=== PATIENT | female | born 1965 | race Caucasian/White ===

== ENCOUNTER 2019-07-20 19:33 | Emergency (ER) | payer SELFPAY ==
[~2019-07-20] VITALS: Ht 154.9 cm; Wt 77.6 kg
[2019-07-20] MEDS ORDERED: HYDROCODONE/APAP 7.5MG-325MG 1 EA TAB PO PRN ×2 (19:45→21:15)
--- NOTE | 2019-07-20 21:17 | Diagnostic Imaging Report ---
Right complete knee. CPT CODE: 11588. INDICATION: Knee entrapment, pain COMPARISON: None FINDINGS: No evidence of acute fracture or dislocation. Mild degenerative changes of the medial and patellofemoral compartments. Trace suprapatellar effusion. IMPRESSION: No acute traumatic pathology. Mild degenerative changes and trace joint effusion. Signed by: Dr. Urbano Cotto MD on 07/20/2019 9:13 PM
--- NOTE | 2019-07-20 21:19 | Diagnostic Imaging Report ---
Ankle complete CPT CODE: 24272 HISTORY: Ankle entrapment, pain TECHNIQUE: Three views left ankle obtained COMPARISON: None. FINDINGS: Miniscule ossicle inferior to the medial malleolus is suggestive of remote injury. Ankle mortise remains symmetric. No significant soft tissue swelling. Miniscule. The calcaneus appears intact with posterior plantar spurs. There are degenerative changes of the midfoot. No acute fracture of the visualized portions of the midfoot or forefoot. IMPRESSION: No acute traumatic pathology. Remote injury inferior to the medial malleolus. Please correlate with point tenderness. Signed by: Dr. Urbano Cotto MD on 07/20/2019 9:16 PM
[2019-07-20] MEDS ORDERED: HYDROCODONE/APAP 7.5MG-325MG 1 EA TAB ONE (21:39)
== END 2019-07-20 22:00 | disposition home or self-care (01) ==
LOC: FSED 19:33 → ER 22:00
DX: S93.492A Sprain of other ligament of left ankle, initial encounter (principal); M25.561 Pain in right knee; X50.1XXA Overexertion from prolonged static or awkward postures, initial encounter; Y99.0 Civilian activity done for income or pay

== ENCOUNTER 2020-03-21 20:17 | Observation (INO) | payer OTHER, SELFPAY ==
[~2020-03-21] VITALS: Ht 154.9 cm; Wt 81.6 kg
--- OUTSIDE RECORDS SUMMARY | 2020-03-21 20:22 | XMS REPORT ---
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 Allergies, Adverse Reactions, Alerts Allergy Name Allergy Type Status Severity Reaction(s) Onset Date Inacti ve Date Treating Clinician Comments No Known Allergies DA Active U 2019-08-18 00:00:00 No Known Allergies DA Active U 2010-11-10 00:00:00 Medications This patient has no known medications. Encounters Start Date/Time End Date/Time Encounter Type Admission Type [facility] Care Department Encounter ID 2019-07-20 19:33:00 2019-07-20 22:00:00 Departed Emergency Room 1 SALVADOR GUTIÉRREZ [facility] [id number] Results Test Description Test Time Test Comments Text Results Atomic Results Result Comments URINALYSIS COMPLETE 2019-08-18 09:24:00 UA COLOR (test code = COLU) YELLOW YELLOW UA APPEARANCE (test code = APPU) Cloudy CLEAR UA GLUCOSE DIPSTICK (test code = DGLUU) NEGATIVE mg/dL NEGATIVE UA BILIRUBIN DIPSTICK (test code = BILU) NEGATIVE mg/dL NEGATIV E UA KETONE DIPSTICK (test code = KETU) NEGATIVE mg/dL NEGATIVE UA SPECIFIC GRAVITY (test code = SGU) 1.034 1.001-1.03 5 UA BLOOD DIPSTICK (test code = EKATERINA) 1.0 mg/dL (3+) mg/dL NEGATIV E UA PH DIPSTICK (test code = AARON) 5.5 5.0-8.0 UA PROTEIN DIPSTICK (test code = PROU) 20 (Trace) mg/dL NEGATIVE UA UROBILINIOGEN DIPSTICK (test code = URO) Normal mg/dL NEGA TIVE UA NITRITE DIPSTICK (test code = MATTY) NEGATIVE NEGATIVE UA LEUKOCYTE ESTERASE W REFLEX (test code = LEUUR) 75 Jose/uL (1+) Jose/uL NEGATIVE UA WBC (test code = WBCU) 21-50 per HPF 0-5 UA RBC (test code = RBCU) >200 #/HPF 0-5 UA EPITHELIAL CELLS (test code = EPIU) MOD per HPF FEW UA BACTERIA (test code = BACU) MODERATE #/HPF NONE UA CALCIUM OXALATE CRYSTALS (test code = CAOXU) FEW #/HPF NONE UA MUCUS (test code = MUCU) FEW #/LPF FEW Urine Source? Clean CatchURINALYSIS [id number] 08:48:00* Test Item Value Reference Range Comments UA COLOR (test code = COLU) YELLOW YELLOW UA APPEARANCE (test code = APPU) Cloudy CLEAR UA GLUCOSE DIPSTICK (test code = DGLUU) NEGATIVE mg/dL NEGATIVE UA BILIRUBIN DIPSTICK (test code = BILU) NEGATIVE mg/dL NEGATIV E UA KETONE DIPSTICK (test code = KETU) NEGATIVE mg/dL NEGATIVE UA SPECIFIC GRAVITY (test code = SGU) 1.034 1.001-1.03 5 UA BLOOD DIPSTICK (test code = EKATERINA) 1.0 mg/dL (3+) mg/dL NEGATIV E UA PH DIPSTICK (test code = AARON) 5.5 5.0-8.0 UA PROTEIN DIPSTICK (test code = PROU) 20 (Trace) mg/dL NEGATIVE UA UROBILINIOGEN DIPSTICK (test code = URO) Normal mg/dL NEGA TIVE UA NITRITE DIPSTICK (test code = MATTY) NEGATIVE NEGATIVE UA LEUKOCYTE ESTERASE W REFLEX (test code = LEUUR) 75 Jose/uL (1+) Jose/uL NEGATIVE UA WBC (test code = WBCU) per HPF 0-5 UA RBC (test code = RBCU) per HPF 0-5 UA EPITHELIAL CELLS (test code = EPIU) per HPF Few UA BACTERIA (test code = BACU) per HPF NONE Urine Source? Clean CatchBASIC METABOLIC [id number] 07:47:00* Test Item Value Reference Range Comments SODIUM (test code = NA) 142 mmol/L 136-145 POTASSIUM (test code = K) 3.6 mmol/L 3.5-5.1 CHLORIDE (test code = CL) 106.0 mmol/L 98-107 CARBON DIOXIDE (test code = CO2) 29.0 mmol/L 21-32 ANION GAP (test code = GAP) 10.6 10-20 GLUCOSE (test code = GLU) 102 mg/dL 74-106 BLOOD UREA NITROGEN (test code = BUN) 15 mg/dL 7-18 GLOMERULAR FILTRATION RATE (test code = GFR) > 60 mL/min >=6 0 Estimated GFR by using Modified MDRD formula.Chronic kidney disease is defined as either kidney damageor GFR <60 mL/min/1.73 m2 for >3 months. CREATININE (test code = CREAT) 0.80 mg/dL 0.55-1.02 * *Note change in reference range due to change in reagent. BUN/CREATININE RATIO (test code = BUN/CREA) 19.6 10-2 0 CALCIUM (test code = CA) 8.6 mg/dL 8.5-10.1 HEPATIC FUNCTION [id number] 07:47:00* Test Item Value Reference Range Comments TOTAL PROTEIN (test code = PROT) 7.1 gram/dL 6.4-8.2 ALBUMIN (test code = ALB) 3.3 g/dL 3.4-5.0 GLOBULIN (test code = GLOB) 3.8 gram/dL 2.7-4.2 ALBUMIN/GLOBULIN RATIO (test code = A/G) 0.9 0.75-1. 50 BILIRUBIN TOTAL (test code = BILT) 0.20 mg/dL 0.0-1.0 BILIRUBIN DIRECT (test code = BILD) 0.06 mg/dL 0.0-0.20 SGOT/AST (test code = AST) 12 IUnit/L 15-37 SGPT/ALT (test code = ALT) 17 IUnit/L 12-78 ALKALINE PHOSPHATASE TOTAL (test code = ALKP) 71 IUnit/L 45 -117 Note change in reference range due to change in reagent. [id number] 07:47:00* Test Item Value Reference Range Comments LIPASE (test code = LIP) 86 U/L 73.0-393.0 HCG SERUM [id number] 07:47:00* Test Item Value Reference Range Comments HCG SERUM QUAL (test code = HCGQL) NEGATIVE NEGATIVE This HCGQL test is NOT applicable for MALE patients.Check with nurse about probable order error.If Tumor Marker Test needed, nurse should order test "HCGTU"(Test #550.40554) [id number] 07:47:00* Test Item Value Reference Range Comments TROPONIN-I (test code = TROPI) <0.015 ng/mL 0-0.045 BASIC METABOLIC [id number] 07:29:00* Test Item Value Reference Range Comments SODIUM (test code = NA) 142 mmol/L 136-145 POTASSIUM (test code = K) 3.6 mmol/L 3.5-5.1 CHLORIDE (test code = CL) 106.0 mmol/L 98-107 CARBON DIOXIDE (test code = CO2) mmol/L 21-32 ANION GAP (test code = GAP) 10-20 GLUCOSE (test code = GLU) mg/dL 74-106 BLOOD UREA NITROGEN (test code = BUN) mg/dL 7-18 GLOMERULAR FILTRATION RATE (test code = GFR) mL/min >=6 0 CREATININE (test code = CREAT) mg/dL 0.55-1.02 BUN/CREATININE RATIO (test code = BUN/CREA) 10-2 0 CALCIUM (test code = CA) mg/dL 8.5-10.1 HEPATIC FUNCTION [id number] 07:29:00* Test Item Value Reference Range Comments TOTAL PROTEIN (test code = PROT) gram/dL 6.4-8.2 ALBUMIN (test code = ALB) g/dL 3.4-5.0 GLOBULIN (test code = GLOB) gram/dL 2.7-4.2 ALBUMIN/GLOBULIN RATIO (test code = A/G) 0.75-1. 50 BILIRUBIN TOTAL (test code = BILT) mg/dL 0.0-1.0 BILIRUBIN DIRECT (test code = BILD) mg/dL 0.0-0.20 SGOT/AST (test code = AST) IUnit/L 15-37 SGPT/ALT (test code = ALT) IUnit/L 12-78 ALKALINE PHOSPHATASE TOTAL (test code = ALKP) IUnit/L 45 -117 [id number] 07:29:00* Test Item Value Reference Range Comments LIPASE (test code = LIP) U/L 73.0-393.0 HCG SERUM [id number] 07:29:00* Test Item Value Reference Range Comments HCG SERUM QUAL (test code = HCGQL) NEGATIVE NEGATIVE This HCGQL test is NOT applicable for MALE patients.Check with nurse about probable order error.If Tumor Marker Test needed, nurse should order test "HCGTU"(Test #550.97458) [id number] 07:29:00* Test Item Value Reference Range Comments TROPONIN-I (test code = TROPI) ng/mL 0-0.045 BASIC METABOLIC [id number] 07:27:00* Test Item Value Reference Range Comments SODIUM (test code = NA) mmol/L 136-145 POTASSIUM (test code = K) mmol/L 3.5-5.1 CHLORIDE (test code = CL) mmol/L 98-107 CARBON DIOXIDE (test code = CO2) mmol/L 21-32 ANION GAP (test code = GAP) 10-20 GLUCOSE (test code = GLU) mg/dL 74-106 BLOOD UREA NITROGEN (test code = BUN) mg/dL 7-18 GLOMERULAR FILTRATION RATE (test code = GFR) mL/min >=6 0 CREATININE (test code = CREAT) mg/dL 0.55-1.02 BUN/CREATININE RATIO (test code = BUN/CREA) 10-2 0 CALCIUM (test code = CA) mg/dL 8.5-10.1 HEPATIC FUNCTION [id number] 07:27:00* Test Item Value Reference Range Comments TOTAL PROTEIN (test code = PROT) gram/dL 6.4-8.2 ALBUMIN (test code = ALB) g/dL 3.4-5.0 GLOBULIN (test code = GLOB) gram/dL 2.7-4.2 ALBUMIN/GLOBULIN RATIO (test code = A/G) 0.75-1. 50 BILIRUBIN TOTAL (test code = BILT) mg/dL 0.0-1.0 BILIRUBIN DIRECT (test code = BILD) mg/dL 0.0-0.20 SGOT/AST (test code = AST) IUnit/L 15-37 SGPT/ALT (test code = ALT) IUnit/L 12-78 ALKALINE PHOSPHATASE TOTAL (test code = ALKP) IUnit/L 45 -117 [id number] 07:27:00* Test Item Value Reference Range Comments LIPASE (test code = LIP) U/L 73.0-393.0 HCG SERUM [id number] 07:27:00* Test Item Value Reference Range Comments HCG SERUM QUAL (test code = HCGQL) NEGATIVE NEGATIVE This HCGQL test is NOT applicable for MALE patients.Check with nurse about probable order error.If Tumor Marker Test needed, nurse should order test "HCGTU"(Test #550.30642) [id number] 07:27:00* Test Item Value Reference Range Comments TROPONIN-I (test code = TROPI) ng/mL 0-0.045 CBC W/O [id number] 07:27:00* Test Item Value Reference Range Comments WHITE BLOOD CELL (test code = WBC) 9.8 K/mm3 4.5-12.5 RED BLOOD CELL (test code = RBC) 4.05 mill/mm3 3.7-5.2 HEMOGLOBIN (test code = HGB) 12.5 gram/dL 11.5-15.5 HEMATOCRIT (test code = HCT) 37.9 % 36.0-46.0 MEAN CELL VOLUME (test code = MCV) 93.6 fL 80-98 MEAN CELL HGB (test code = MCH) 30.9 picogram 27.0-33.0 MEAN CELL HGB CONCETRATION (test code = MCHC) 33.0 gram/dL 33 .0-36.0 RED CELL DISTRIBUTION WIDTH (test code = RDW) 13.3 % 11 .6-16.2 PLATELET COUNT (test code = PLT) 303 K/mm3 150-450 MEAN PLATELET VOLUME (test code = MPV) 8.7 fL 6.7-11.0 - CT ABD PELVIS W/O [id number] 07:09:00 Name: ANTONIO MARIN [facility] : 1965 Age/S: 54 / F [address] [facility] Unit #: [id number] Loc: AKANKSHA [place] [address] Phys: JohnMelissatyler Moody CORPORATE GIVING MANAGER Acct: [id number] Dis Date: Status: REG ER PHONE #: [phone] Exam Date: 08/18/2019 0648 FAX #: [phone] Reason: L FLANK AND ABD PAIN EXAMS: CPT CODE: [id number] CT ABD PELVIS W/O CONT 24813 LOCATION: H43 EXAM: - CT ABD PELVIS W/O CONT HISTORY: L FLANK AND ABD PAIN TECHNIQUE: Axial imaging of the abdomen and pelvis from the lung base to the pubic symphysis without administration of intravenous contrast. Sagittal and coronal reconstructions. CT scan performed using appropriate/available dose optimization/reduction techniques. DLP 521.79 mGy/cm COMPARISON: None. FINDINGS: Lung bas e:The visualized lung base is clear. The heart size is normal. No pericard ial or pleural effusion is present. Assessment of abdominal visce ra limited in the absence of intravenous contrast. Liver/sp giulia: Unremarkable. Biliary system: The gallbladder is surgically absent. No biliary duct dilatation. Pancreas: Unrema rkable. Adrenal glands: Normal. Genitourinary: Mild left renal cortical edema is present. There is fullness of the left savi ecting system consistent with mild hydronephrosis. The left ureter is non dilated and only intermittently visible. No radiopaque obstructing calcul us is identified along the course of the left ureter. A punctate calculus is suggested in the urinary bladder base (image 99). The urinary bladder is otherwise nearly completely empty, limiting its assessment. A 2 mm ri ght lower pole calculus is present. Vascular: Mild atheroscl erosis normal caliber abdominal aorta. Lymph nodes: No abdominal lymphadenopathy. PAGE 1 Signed Report (CONTINUED) Name: ANTONIO MARIN [facility] : 1965 Age/S: 54 / F [address] [facility] Unit #: [id number] Loc: AKANKSHA [place] [address] Phys: Melissa Lopez NP Acct: [id number] Dis Date: Status: REG ER PHONE #: [phone] Exam Date: 08/18/2019647 FAX #: [phone] Reason: L FLANK AND ABD PAIN EXAMS: CPT CODE: [id number] CT ABD PELVIS W/O CONT 18157 < Continued> Pelvic structures: No pelvic lymphadenopathy or free fluid. The uterus and adnexa are normal for age. Gastrointestinal tract:Diverticulosis. No evidence of acute diverticulitis. No abnormal bowel dilatation. Normal caliber appendix is identified. No focal fluid collections, ascites or evidence of pneumoperitoneum. Bones and soft tissues: A 2.0 cm fat containing ventral abdominal wall hernia defect is present to the right of midline. A 5 mm anterolisthesis of L5 with respect to S1 is present. There is no evidence of a spondylolysis defect. IMPRESSION: 1. Mild left hydronephrosis and renal cortical edema. No ureteral dilatation. A punctate calculus is suggested within the urinary bladder base. Correlate with symptomatology. 2. Nonobstructing right nephrolithiasis. 3. Fat-containing supraumbilical ventral abdominal wall defect. at 0709 Reported and signed by: Eloina Perez M.D. CC: Orville uGtierrez MD; Melissa Lopez NP Technologist:Hai Mix, RT(R)(CT) CTDI: DLP: Trnscb Date/Time: 08/18/2019 (708) [id number] Orig Print D/T: S: 08/18/2019 (6881) PAGE 2 Signed Report ANKLE 3+ VIEWS [id number] 21:13:00 [facility] [address] [address] Patient Name: ANTONIO MARIN MR #: [id number] : 1965 Age/Sex: 54/F Req #: [id number] Adm Physician: Ordered by: GIANLUCA GODOY CORPORATE GIVING MANAGER Report #: [id number] Location: ER Room/Bed: Procedure: 44 DX/ANKLE 3+ VIEWS LEFT Exam Date: 07/20/19 Exam T laura: 1999 REPORT STATUS: Signed Ankle complete CPT CODE: 05684 HISTORY: Ankle entrapment, pain TECH NIQUE: Three views left ankle obtained COMPARISON: None. FINDINGS: Miniscule ossicle inferior to the medial malleolus is suggestive of remote injury. Ankle mortise remains symmetric. No significant soft tissue swelling. Miniscule. The calcaneus appears intact with posterior plantar spurs. There are degenerative changes of the midfoot. No acute fracture of the visualized p ortions of the midfoot or forefoot. IMPRESSION: No acute traumatic pathol ogy. Remote injury inferior to the medial malleolus. Please correlate with poi nt tenderness. Signed by: Dr. Nina Cotto MD on 07/20/2019 9:16 PM Dictated By: NINA COTTO MD 15 Transcribed By: RALEIGH on 07/20/192115 COPY TO: GIANLUCA GODOY CORPORATE GIVING MANAGER KNEE RIGHT THREE [id number] 21:12:00 [facility] [address] [place], [place] [id number] Patient Name: ANTONIO MARIN MR #: [id number] : 1965 Age/Sex: 54/F Req #: [id number] [facility] Physician: Ordered by: SALVADOR GUTIÉRREZ MD Report #: [id number] Location: Room/Bed: Procedure: 45 DX/KNEE RIGHT THREE VIEWS Exam Date: 07/20/19 Florian winkler Time: 1999 REPORT STATUS: Signed Right complete knee. CPT CODE: 20997. INDICATION: Knee entrapment, pain COMPARISON: None FINDINGS: No evidence of acute fracture or disl ocation. Mild degenerative changes of the medial and patellofemoral compartme nts. Trace suprapatellar effusion. IMPRESSION: No acute traumatic pathology. Mild degenerative changes and trace joint effusion. Signed by: Dr. Nina Cotto MD on 07/20/2019 9:13 PM Dictated By: NINA FAITH MD 12 Transc ribed By: RALEIGH on 07/20/192112 COPY TO: SALVADOR GUTIÉRREZ MD
[2020-03-21] MEDS ORDERED: SODIUM CHLORIDE 0.9% 1000ML 1,000 ML IV STA (20:32)
[2020-03-21] MEDS ORDERED: ONDANSETRON HCL INJ 2MG/ML 2ML 2 MG/ML VIAL IV STA (20:32)
[2020-03-21] MEDS ORDERED: MORPHINE SULFATE INJ 4 MG/ML INJ 1ML IV STA (20:32)
[2020-03-21] MEDS ORDERED: ASPIRIN 81 MG CHEW TAB PO ONE ×2 (20:45→22:45)
[2020-03-21 21:06] LABS: BASOPHILS # (AUTO) 0.1 (0.0-0.1); BASOPHILS % 0.7 % (0.0-1.0); EOSINOPHILS # (AUTO) 0.2 (0.0-0.4); EOSINOPHILS % 3.2 % (0.0-6.0); HEMATOCRIT 39.7 % (34.2-44.1); HEMOGLOBIN 12.7 g/dL (12.0-16.0); LYMPHOCYTES # (AUTO) 2.7 (1.0-3.2); LYMPHOCYTES % 39.6 % (18.0-39.1); MEAN CORPUSCULAR HEMOGLOBIN 30.4 pg (28-32); MONOCYTES # (AUTO) 0.7 (0.2-0.8); MONOCYTES % 9.9 % (4.4-11.3); NEUTROPHILS # (AUTO) 3.2 (2.1-6.9); NEUTROPHILS % 46.5 % (38.7-80.0); PLATELET COUNT 338 x10e3/uL (140-360); RED BLOOD COUNT 4.18 x10e6/uL (3.6-5.1); RED CELL DISTRIBUTION WIDTH 13.2 % (11.7-14.4)
[2020-03-21 21:13] LABS: PHENCYCLIDINE SCREEN,URINE NEGATIVE (NEGATIVE)
[2020-03-21 21:14] LABS: AMPHETAMINES SCREEN,URINE POSITIVE (NEGATIVE); BENZODIAZEPINES SCREEN,URINE POSITIVE (NEGATIVE)
[2020-03-21 21:15] LABS: BILIRUBIN,URINE NEGATIVE (NEGATIVE); CLARITY,URINE HAZY (CLEAR); COLOR,URINE YELLOW (YELLOW); KETONES,URINE NEGATIVE (NEGATIVE); LEUKOCYTE ESTERASE ,URINE NEGATIVE (NEGATIVE); NITRITE,URINE NEGATIVE (NEGATIVE); PROTEIN,URINE DIPSTICK NEGATIVE (NEGATIVE); URINE UROBILINOGEN 0.2 mg/dL (0.2 - 1)
[2020-03-21 21:17] LABS: AMORPHOUS SEDIMENT,URINE MODERATE (FEW); BACTERIA,URINE MODERATE /HPF; EPITHELIAL CELLS,URINE MODERATE /LPF; RBC,URINE 0-5 /HPF (0-5); WBC,URINE (MAN) 0-5 /HPF (0-5)
[2020-03-21 21:18] LABS: MUCUS,URINE MODERATE (RARE)
[2020-03-21 21:33] LABS: ALANINE AMINOTRANSFERASE 12 IU/L (0-55); ALBUMIN 3.3 g/dL (3.5-5.0); ALKALINE PHOSPHATASE 69 IU/L (40-150); ANION GAP 13.4 mmol/L (8-16); BLOOD UREA NITROGEN 9 mg/dL (7-26); BUN/CREATININE RATIO 13 (6-25); CALCIUM 9.2 mg/dL (8.4-10.2); CARBON DIOXIDE 24 mmol/L (22-29); CHLORIDE 108 mmol/L (98-107); CREATINE KINASE 45 IU/L (29-168); CREATININE, SERUM 0.69 mg/dL (0.57-1.11); EST GLOMERULAR FILTRATION RATE > 60 ML/MIN (60-); GLUCOSE 82 mg/dL (74-118); LIPASE 24 U/L (8-78); POTASSIUM 3.4 mmol/L (3.5-5.1); SODIUM 142 mmol/L (136-145)
[2020-03-21] MEDS ORDERED: IOPAMIDOL 370 MG/ML 200 ML INFUS..BTL INJ ONE (22:42)
[2020-03-21] MEDS ORDERED: SODIUM CHLORIDE 0.9% 50ML 50 ML ONE (22:42)
[2020-03-21] MEDS ORDERED: MORPHINE SULFATE 2 MG/ML SYR 1ML IV PRN (22:45)
[2020-03-21] MEDS ORDERED: ONDANSETRON HCL INJ 2MG/ML 2ML 2 MG/ML VIAL IV PRN (22:45)
--- NOTE | 2020-03-21 23:20 | NUR ---
Patient swabbed for COVID at this time.
--- NOTE | 2020-03-21 23:41 | Diagnostic Imaging Report ---
EXAM: CT Abdomen and Pelvis WITH contrast INDICATION: Abdominal pain COMPARISON: None. TECHNIQUE: Abdomen and pelvis were scanned utilizing a multidetector helical scanner from the lung base to the pubic symphysis after administration of IV contrast. Coronal and sagittal reformations were obtained. Routine protocol was performed. Scan was performed when during portal venous phase. IV CONTRAST: 100 mL of Isovue 370 ORAL CONTRAST: None COMPLICATIONS: None RADIATION DOSE: Total DLP: 696 mGy*cm Estimated effective dose: (DLP x 0.015 x size factor) mSv CTDIvol has been reviewed. It is below the limits set by the Radiation Protocol Committee (RPC). Dose modulation, iterative reconstruction, and/or weight based adjustment of the mA/kV was utilized to reduce the radiation dose to as low as reasonably achievable. FINDINGS: LINES and TUBES: None. LOWER THORAX: Bibasilar atelectasis. HEPATOBILIARY: No focal hepatic lesions. No biliary ductal dilation. GALLBLADDER: There are cholecystectomy clips. SPLEEN: No splenomegaly. PANCREAS: No focal masses or ductal dilatation. ADRENALS: No adrenal nodules KIDNEYS/URETERS: Kidneys enhance symmetrically. No hydronephrosis. No cystic or solid mass lesions. No stones. GI TRACT: Small sliding gastric hiatal hernia with mild distal esophageal wall thickening. No abnormal distention or evidence of bowel obstruction. Appendix is normal. PELVIC ORGANS/BLADDER: Unremarkable. LYMPH NODES: No lymphadenopathy. VESSELS: Vascular calcifications. PERITONEUM / RETROPERITONEUM: No free air or fluid. BONES: Degenerative changes. SOFT TISSUES: Small fat-containing upper abdominal ventral hernia,, right of midline, with subtle associated edema. IMPRESSION: 1. Small sliding gastric hiatal hernia with mild distal esophagitis. 2. Small fat-containing upper abdominal ventral hernia, right of midline, with subtle associated edema, possibly acute, correlate for point tenderness. Signed by: Brock Amaya DO on 03/21/2020 11:37 PM
--- NOTE | 2020-03-21 23:48 | Diagnostic Imaging Report ---
EXAMINATION: CHEST SINGLE (PORTABLE) INDICATION: Chest pain COMPARISON: Same day abdominal CT FINDINGS: TUBES and LINES: None. LUNGS: Normal lung volumes. Right infrahilar haziness. No consolidations. Mild prominence of central pulmonary vasculature. PLEURA: No pleural effusion or pneumothorax. HEART AND MEDIASTINUM: The cardiomediastinal silhouette is unremarkable. BONES AND SOFT TISSUES: Degenerative changes. No acute osseous lesion. Soft tissues are unremarkable. UPPER ABDOMEN: No free air under the diaphragm. IMPRESSION: Right infrahilar haziness is likely due to atelectasis/scarring as seen on abdominal CT. Mild pulmonary vascular congestion. Signed by: Brock Amaya DO on 03/21/2020 11:44 PM
[2020-03-22] VITALS (9 sets, daily range): BP systolic 94–122; BP diastolic 52–81
--- NOTE | 2020-03-22 00:25 | NUR ---
Patient was brought from er in a wheel chair.admission assessment done.aaox4.left chest pain voiced 05/22.tele#[address]iv right ac#20 patent.oriented to the unit.bed locked and in lowest position.phone and call light within reach.instructed to call for assistance as needed.keep monitor the patient.
[2020-03-22] MEDS: SODIUM CHLORIDE 0.9% 1000ML 1,000 ML IV SCH ×3 (00:39→14:52)
--- NOTE | 2020-03-22 06:18 | NUR ---
C/O HEADACHE.NOTIFIED TO .RECEIVED NEW ORDERS.
[2020-03-22] MEDS ORDERED: HYDROCODONE/APAP 5MG-325MG TAB PO PRN (06:30)
[2020-03-22] MEDS ORDERED: ACETAMINOPHEN 325 MG TAB PO PRN (06:30)
[2020-03-22 06:36] LABS: BASOPHILS # (AUTO) 0.1 (0.0-0.1); BASOPHILS % 0.7 % (0.0-1.0); EOSINOPHILS # (AUTO) 0.2 (0.0-0.4); EOSINOPHILS % 2.6 % (0.0-6.0); HEMATOCRIT 35.6 % (34.2-44.1); HEMOGLOBIN 11.6 g/dL (12.0-16.0); LYMPHOCYTES % 40.4 % (18.0-39.1); MEAN CORPUSCULAR HEMOGLOBIN 30.9 pg (28-32); MEAN CORPUSCULAR HGB CONC 32.6 g/dL (31-35); MEAN CORPUSCULAR VOLUME 94.9 fL (81-99); MONOCYTES # (AUTO) 0.7 (0.2-0.8); MONOCYTES % 9.8 % (4.4-11.3); NEUTROPHILS # (AUTO) 3.4 (2.1-6.9); NEUTROPHILS % 46.2 % (38.7-80.0); PLATELET COUNT 315 x10e3/uL (140-360); RED BLOOD COUNT 3.75 x10e6/uL (3.6-5.1); RED CELL DISTRIBUTION WIDTH 13.2 % (11.7-14.4)
--- NOTE | 2020-03-22 07:00 | NUR ---
bedside shift report received,co headache medicated prior to shift change, updated on poc vocied understanding, call light in reach will continue to monitor
[2020-03-22 07:03] LABS: CREATINE KINASE MB 0.8 ng/mL (0-5.0)
--- NOTE | 2020-03-22 07:05 | NUR ---
Bed side shift report given to oncoming rn.stable condition.patient stated that not taking home med.
--- NOTE | 2020-03-22 07:18 | NUR ---
Notified to consults.
--- NOTE | 2020-03-22 07:22 | NUR ---
spoke with dr dyson informed of consult
[2020-03-22 07:25] LABS: ALANINE AMINOTRANSFERASE 11 IU/L (0-55); ALBUMIN 2.8 g/dL (3.5-5.0); ALBUMIN/GLOBULIN RATIO 0.9 (0.8-2.0); ALKALINE PHOSPHATASE 56 IU/L (40-150); ANION GAP 11.9 mmol/L (8-16); BLOOD UREA NITROGEN 8 mg/dL (7-26); BUN/CREATININE RATIO 13 (6-25); CALCIUM 8.6 mg/dL (8.4-10.2); CARBON DIOXIDE 22 mmol/L (22-29); CHLORIDE 111 mmol/L (98-107); CREATININE, SERUM 0.61 mg/dL (0.57-1.11); EST GLOMERULAR FILTRATION RATE > 60 ML/MIN (60-); GLUCOSE 90 mg/dL (74-118); POTASSIUM 3.9 mmol/L (3.5-5.1); SODIUM 141 mmol/L (136-145)
[2020-03-22 15:06] LABS: CREATINE KINASE 37 IU/L (29-168)
[2020-03-22] MEDS ORDERED: ENOXAPARIN SOD INJ 40 MG/0.4 ML SYR SC SCH (17:00)
--- NOTE | 2020-03-22 18:58 | NUR ---
RECEIVED THE PATIENT IN REPORT.LYEING IN THE BED.STABLE CONDITION.
--- NOTE | 2020-03-22 19:07 | Progress Note ---
DATE: 03/22/2020 Cardiology Progress Note CONSULTING PHYSICIAN: Camilo Rivera MD, Interventional Cardiology. REASON FOR CONSULTATION: Chest pain. HISTORY OF PRESENT ILLNESS: A 54-year-old woman with history of tobacco abuse, presents to the emergency department for 2-day onset of chest discomfort, described as midsternal, pressure-like, radiating to left side of the chest and upper extremity. Onset of chest discomfort occurred after the patient was trying to lift heavy object with left upper extremity. She felt as though she had pulled a muscle after which chest discomfort initiated. Chest discomfort worsens with movement of left upper extremity and deep inspiration. Chest discomfort is not affected by exertion, meals. She denies any associated complaints including palpitations, lightheadedness, or syncope. She denies any prior history of cardiac issues. REVIEW OF SYSTEMS: A 12-system review negative except for as noted above. ALLERGIES: NO KNOWN DRUG ALLERGIES. PAST MEDICAL HISTORY: As per HPI. None reported other than tobacco abuse. FAMILY HISTORY: Noncontributory. PHYSICAL EXAMINATION: VITAL SIGNS: Temperature 96 degree, heart rate 78, respiratory rate 20, blood pressure 100/61, and O2 saturation 98% on room air. GENERAL: No acute distress, alert. NECK: No JVD. CHEST: Clear to auscultation. CARDIOVASCULAR: Regular rate and rhythm. Normal S1, S2. ABDOMEN: Soft. Bowel sounds positive. EXTREMITIES: No edema. CARDIOVASCULAR MEDICATIONS: Reviewed. STUDIES: Reviewed. White blood cell is 7.3, hemoglobin 11.6, and platelets 315. D-dimer 0.4. Serial troponins negative x3. BNP 73, creatinine 0.6, lipase 24. Chest x-ray, right infrahilar haziness likely due to atelectasis or scarring as seen on abdominal CT, mild pulmonary vascular congestion. Abdomen and pelvis CT small sliding gastric hiatal hernia with mild distal esophagitis, small fat containing upper abdominal ventral hernia, right of midline which the patient reports is not tender on exam. EKG, sinus bradycardia. Echocardiogram with preserved left ventricular systolic function. Left ventricular ejection fraction 55% to 60%. Normal diastolic filling. Mild tricuspid regurgitation. RVSP of 24 mmHg. ASSESSMENT AND PLAN: 1. A 54-year-old woman presents with chest discomfort with musculoskeletal features and atypical for cardiac etiology. 2. History of tobacco abuse. 3. UDS positive for methadone, amphetamines, benzodiazepines, and cannabinoids (polysubstance abuse). RECOMMEND: 1. Consider muscle relaxants. 2. Tobacco and substance abuse cessation counseling. 3. No arrhythmias documented on telemetry other than episodes of sinus bradycardia, which seem to be improving and so far are asymptomatic. Heart rate on exam today in the 70s. Thank you for the opportunity to participate in the care of this patient. Camilo Rivera MD AFV/MODL /[id number]
--- NOTE | 2020-03-22 19:50 | NUR ---
IS IN THE UNIT AND SAW THE PATIENT. CLEARED FROM HIS SURGICAL STAND POINT.MD TOLD THAT PATIENT WANTED TO GO HOME TO NIGHT.CALL PLACED TO IN HIS CELL PHONE AND SPOKE TO HIM ABOUT THE DETAILS OF THE CONSULTATION AND PATIENT'S DEMANDS.MD URIBE DID NOT GIVE THE DISCHARGE ORDER AND HANG UP THE PHONE.I EXPLAINED TO THE PATIENT THAT "I DON'T HAVE DISCHARGE ORDER ". THIS NURSE ALSO DISCUSSED THE RISKS AND BENEFITS OF LEAVING WITHOUT MD ORDER.PATIENT CONTINUES TO WANTS TO LEAVE.
--- NOTE | 2020-03-22 19:55 | NUR ---
TRIED TO CONTACT MD URIBE MULTIPLE TIMES.BUT UNSUCCESSFUL.ASSESSMENT DONE.NO RESP.DISTRESS .NO PAIN VOICED.STABLE CONDITION.
--- NOTE | 2020-03-22 20:02 | History and Physical ---
CHIEF COMPLAINT: Chest pain. HISTORY OF PRESENT ILLNESS: This is a 54-year-old female, denies any past medical history except for chronic pain, presents to the ED with complaints of chest pain and abdominal pain. The patient reports that her chest pain has been ongoing for the last 1 or 2 days. Reports substernal with no radiation, kind of sharp in nature in the center of her chest. Denies any nausea or vomiting, associated diaphoresis or any other complaints. In relation to her abdominal pain more described in the right area of the abdomen in the middle aspect. She does report having a little knot and was told that she had a ventral hernia in the past. Imaging studies consistent with a ventral hernia. General Surgery and Cardiology has been consulted. The patient was found to have positive urine drug screen. She reports she takes an oral medication from a local store due to chronic pain, which could be contributing. She does endorse positive marijuana at home. REVIEW OF SYSTEMS: Pertinent positive chest pain and abdominal pain. The rest of 14-point review of systems are reviewed with the patient and are negative. ALLERGIES: NO KNOWN DRUG ALLERGIES. HOME MEDICATIONS: None. PAST MEDICAL HISTORY: She does report chronic back pain. No other issues. PAST SURGICAL HISTORY: None. FAMILY HISTORY: Hypertension and diabetes. SOCIAL HISTORY: Positive for marijuana. Smokes on occasion. She did have positive urine drug screen. Occasional smoker, occasional drinker. PHYSICAL EXAMINATION: VITAL SIGNS: Temperature is 96.6, pulse 76, respiratory rate 20, blood pressure is 107/67, pulse ox 96% on room air. GENERAL: In no acute distress, alert and oriented x3, cooperative on examination. HEENT: Head is normocephalic and atraumatic. Eyes; pupils are equal, round and reactive to light bilaterally. Extraocular movements are intact bilaterally. Neck was supple. Good range of motion. Throat, no evidence of erythema or exudates in the posterior pharynx. Has poor dentition. PULMONARY: Clear to auscultation bilaterally. No wheezing, rales, or rhonchi. No crackles appreciated. CARDIOVASCULAR: Positive S1, S2. No murmurs, rubs, or gallops appreciated. ABDOMEN: Soft, nondistended, and nontender to palpation. Bowel sounds present. MUSCULOSKELETAL: Strength is 5/5 throughout. No evidence of any muscle deficits on examination. No weakness appreciated. NEUROLOGIC: Cranial nerves 2 thorough 12 grossly intact. No evidence of any neurological deficits on examination. SKIN: Intact. Warm to touch. Good capillary refill. PSYCHIATRIC: Normal affect and mood. EXTREMITIES: No edema. Good range of motion throughout. LABORATORY FINDINGS: White count 7.3, hemoglobin 11.6, hematocrit 35.6, platelets of 315,000. Coagulation; D-dimer is 0.41. Chemistry; sodium 141, potassium 3.9, chloride 111, bicarb 22, anion gap of 11, BUN is 8, creatinine is 0.61, glucose is 90, calcium is 8.6. LFTs within normal range. CK is 37. Troponins were negative. BNP 73. Albumin was 2.8. Lipase was 24. Urinalysis shows some amorphous sediment with urine bacteria and urine mucus likely to be normal. Urine drug screen positive for methadone, amphetamine, benzodiazepines, and cannabinoids. Patel virus PCR was pending. IMAGING STUDIES: CT abdomen and pelvis shows a small sliding hiatal hernia with mild distal esophagitis. There is a small fat containing upper abdominal ventral hernia right of the midline with subtle associated edema, possibly acute, correlate for point tenderness. There is some evidence of some distal esophagitis. Chest x-ray shows some right infrahilar haziness, likely atelectasis. Some mild pulmonary vascular congestion. IMPRESSION: 1. Chest pain likely atypical in nature from underlying positive urine drug screen. 2. Ventral abdominal hernia reducible. 3. Chronic pain syndrome. PLAN: At this time her cardiac enzymes were found to be negative. She is on aspirin. This is likely atypical in nature, is likely secondary to positive amphetamine. Cardiology has been consulted for evaluation. As for the ventral abdominal hernia, it is reducible in nature, no need for any intervention at this time. Pain control and General surgery consultation. She does already have an abdominal binder at home, which I advised her to continue using that. Otherwise, await parts consultant's recommendations. She does not take any home medications. Put on Lovenox for DVT prophylaxis. Monitor very closely. Consultants involved Cardiology and General Surgery. MD NAGA Douglas/BABATUNDE /[id number]
--- NOTE | 2020-03-22 20:10 | NUR ---
NOTIFIED TO LABORATORY GENETICIST AND CHARGE NURSE. PER THEIR OPINION NO NEED TO SIGN AMA FORM BY PATIENT.IT IS ELOPING FROM THE HOSPITAL.
--- NOTE | 2020-03-22 21:10 | NUR ---
TELE AND IV REMOVED.CATHETER TIP WAS INTACT.APPLIED PRESSURE DRESSING.TELE BOX RETURNED TO DEPT.PATIENT DENIED FURTHER NEEDS.THIS NURSE REMINDED THE PATIENT TO RETURN TO THE EMERGENCY DEPT WITH ANY RELATED COMPLAINT OR COMPLICATION AND HER LEAVING WILL NOT INFLUENCE OR INTERFERE WITH FUTURE CARE.
--- NOTE | 2020-03-22 21:15 | NUR ---
PATIENT WENT HOME SAFELY WITH FAMILY,ESCORTED VIA WHEEL CHAIR TO THE PRIVATE AUTO AT THE ER ENTRANCE IN A STABLE CONDIITON.
[2020-03-23] MEDS ORDERED: ASPIRIN 81 MG CHEW TAB PO SCH (09:00)
--- NOTE | 2020-03-24 00:37 | Discharge Summary ---
FINAL DISCHARGE DIAGNOSES: 1. Left against medical advice. 2. Chest pain, likely atypical. 3. Ventral abdominal hernia, reducible. 4. Chronic pain syndrome. 5. Positive urine drug screen. CONSULTANTS: General Surgery and Cardiology. PHYSICAL EXAMINATION: VITAL SIGNS: Temperature is 96.3, pulse 75, respirations 18, blood pressure is 110/64, pulse ox 99% on room air. LABORATORY DATA: Show white count 7.3, hemoglobin 11.6, hematocrit 35.6, platelets are 315. Chemistry; sodium 141, potassium 3.9, chloride 111, bicarb 22, anion gap of 11, BUN is 8 and creatinine 0.61, glucose 90, calcium 8.6. LFTs within normal range. Troponins are negative. Total protein 5.8, lipase is 24. Urine drug screen positive for methadone, amphetamine, benzodiazepines, and cannabinoids. Coronavirus PCR is pending. IMAGING STUDIES: CT abdomen and pelvis shows a small sliding gastric hiatal hernia with mild distal esophagitis. Small fat containing upper abdominal ventral hernia, right of the midline with subtle associated edema possibly acute, correlate for point tenderness. Chest x-ray shows right infrahilar haziness is likely due to atelectasis. Scarring is seen on abdominal CT. Mild pulmonary vascular congestion. HOSPITAL COURSE: A 54-year-old female, who came into the ED with complaints of chest pain and abdominal pain. On admission, the patient had a urine drug screen positive for polysubstance abuse. The patient reports that she was taking some [id number] medication for pain control. She states that she does not take opioids at home. The patient was seen and evaluated at bedside on the medical floor. Cardiology was consulted and the patient was cleared for discharge by Cardiology. As per General Surgery, the patient was evaluated late in the day in the evening time and reported she does not need any kind of surgical intervention. The patient eventually left against medical advice on 03/22/2020. The patient signed AMA paperwork left in the chart. Nursing staff notified me of leaving against medical advice. MEDICATIONS: See med reconciliation form. DISPOSITION: Left against medical advice. In the event of any worsening symptoms, the patient advised to come back to the ED for further evaluation. Discharge summary took greater than 35 minutes. The patient left against medical advice, signed appropriate documentation left in the chart. MD NAGA Douglas/BABATUNDE /[id number]
== END 2020-03-22 21:16 | disposition left against medical advice (07) ==
LOC: ER 20:17 → ERHOLD 23:06 → MED/SURG 03-22 00:25
PROVIDERS: ADMIT Internal Medicine; ATTEND Internal Medicine
DX: K43.9 Ventral hernia without obstruction or gangrene (principal); R07.89 Other chest pain; G89.4 Chronic pain syndrome; F19.10 Other psychoactive substance abuse, uncomplicated; Z87.891 Personal history of nicotine dependence
CPT/HCPCS: 36415; 71045; 74177; 80053; 80307; 80329; 81001; 82550; 82553; 83690; 83880; 84484; 85025; 85379; 87635; 93005; 93306; 96361; 99284; G0378; J1650; J2270; J2405; J7030; Q9967

== ENCOUNTER 2022-02-01 21:42 | Emergency (ER) | payer OTHER ==
[~2022-02-01] VITALS: Ht 154.9 cm; Wt 81.6 kg
[2022-02-01 22:13] LABS: BASOPHILS # (AUTO) 0.1 (0.0-0.1); BASOPHILS % 0.7 % (0.0-1.0); EOSINOPHILS # (AUTO) 0.3 (0.0-0.4); EOSINOPHILS % 3.8 % (0.0-6.0); HEMATOCRIT 39.9 % (34.2-44.1); HEMOGLOBIN 13.1 g/dL (12.0-16.0); LYMPHOCYTES # (AUTO) 2.6 (1.0-3.2); LYMPHOCYTES % 37.9 % (18.0-39.1); MEAN CORPUSCULAR HEMOGLOBIN 30.8 pg (28-32); MEAN CORPUSCULAR HGB CONC 32.8 g/dL (31-35); MEAN CORPUSCULAR VOLUME 93.9 fL (81-99); MONOCYTES # (AUTO) 0.4 (0.2-0.8); MONOCYTES % 5.6 % (4.4-11.3); NEUTROPHILS # (AUTO) 3.6 (2.1-6.9); NEUTROPHILS % 51.7 % (38.7-80.0); PLATELET COUNT 353 x10e3/uL (140-360); RED BLOOD COUNT 4.25 x10e6/uL (3.6-5.1); RED CELL DISTRIBUTION WIDTH 13.2 % (11.7-14.4)
[2022-02-01 23:03] LABS: ALBUMIN 3.4 g/dL (3.5-5.0); ALBUMIN/GLOBULIN RATIO 0.9 (0.8-2.0); ANION GAP 10.7 mmol/L (8-16); CALCIUM 8.9 mg/dL (8.4-10.2); CREATININE, SERUM 0.7 mg/dL (0.57-1.11); POTASSIUM 3.7 mmol/L (3.5-5.1)
[2022-02-01] MEDS ORDERED: IOPAMIDOL 370 MG/ML 200 ML INFUS..BTL INJ ONE (23:38)
[2022-02-01] MEDS ORDERED: SODIUM CHLORIDE 0.9% 50ML 50 ML ONE (23:38)
[2022-02-02 01:02] VITALS: BP 104/63
== END 2022-02-02 01:03 | disposition home or self-care (01) ==
LOC: ER 21:56
DX: N81.4 Uterovaginal prolapse, unspecified (principal); K57.90 Diverticulosis of intestine, part unspecified, without perforation or abscess without bleeding; K42.9 Umbilical hernia without obstruction or gangrene
CPT/HCPCS: 36415; 74177; 80053; 85025; 99284; Q9967

== ENCOUNTER 2022-02-24 17:02 | Emergency (ER) | payer OTHER ==
[~2022-02-24] VITALS: Ht 154.9 cm; Wt 81.6 kg
[2022-02-24] MEDS ORDERED: HYDROCODONE/APAP 7.5MG-325MG 1 EA TAB PO ONE (17:30)
[2022-02-24] MEDS ORDERED: HYDROCODON-ACE1 EAC9 PO (19:40)
[2022-02-24] MEDS ORDERED: CYCLOBENZAPRINE5 MG PO (19:40)
[2022-02-24] MEDS ORDERED: NAPROSYN500 MG PO (19:40)
[2022-02-24 19:51] VITALS: BP 115/78
== END 2022-02-24 19:46 | disposition home or self-care (01) ==
LOC: ER 17:06
DX: M25.561 Pain in right knee (principal); S86.812A Strain of other muscle(s) and tendon(s) at lower leg level, left leg, initial encounter; M13.861 Other specified arthritis, right knee; N80.9 Endometriosis, unspecified; F17.210 Nicotine dependence, cigarettes, uncomplicated
CPT/HCPCS: 93971; 99283

== ENCOUNTER 2022-04-24 20:25 | Emergency (ER) | payer OTHER ==
[~2022-04-24] VITALS: Ht 154.9 cm; Wt 81.6 kg
[~2022-04-24 20:25] MED LIST: CYCLOBENZAPRINE5 MG PO; HYDROCODON-ACE1 EAC9 PO; NAPROSYN500 MG PO
[2022-04-24 20:57] LABS: BASOPHILS # (AUTO) 0.1 (0.0-0.1); BASOPHILS % 0.6 % (0.0-1.0); EOSINOPHILS # (AUTO) 0.2 (0.0-0.4); EOSINOPHILS % 1.8 % (0.0-6.0); HEMATOCRIT 42.3 % (34.2-44.1); HEMOGLOBIN 13.5 g/dL (12.0-16.0); LYMPHOCYTES # (AUTO) 2.1 (1.0-3.2); LYMPHOCYTES % 24.2 % (18.0-39.1); MEAN CORPUSCULAR HEMOGLOBIN 30.3 pg (28-32); MEAN CORPUSCULAR HGB CONC 31.9 g/dL (31-35); MEAN CORPUSCULAR VOLUME 94.8 fL (81-99); MONOCYTES # (AUTO) 0.6 (0.2-0.8); MONOCYTES % 6.6 % (4.4-11.3); NEUTROPHILS # (AUTO) 5.8 (2.1-6.9); NEUTROPHILS % 66.5 % (38.7-80.0); PLATELET COUNT 376 x10e3/uL (140-360); RED BLOOD COUNT 4.46 x10e6/uL (3.6-5.1); RED CELL DISTRIBUTION WIDTH 13.2 % (11.7-14.4)
[2022-04-24 21:08] LABS: ANION GAP 13.9 mmol/L (8-16); CALCIUM 9.8 mg/dL (8.4-10.2); CREATININE, SERUM 0.69 mg/dL (0.57-1.11); POTASSIUM 3.9 mmol/L (3.5-5.1)
== END 2022-04-24 22:05 | disposition home or self-care (01) ==
LOC: ER 20:35
DX: R60.9 Edema, unspecified (principal); M79.605 Pain in left leg; M79.604 Pain in right leg; N80.9 Endometriosis, unspecified
CPT/HCPCS: 36415; 80048; 83880; 84484; 85025; 93005; 99283

== ENCOUNTER 2022-10-11 01:17 | Emergency (ER) | payer OTHER ==
[~2022-10-11] VITALS: Ht 154.9 cm; Wt 77.1 kg
[2022-10-11] MEDS ORDERED: HYDROCODONE/APAP 5MG-325MG TAB PO ONE (01:45)
[2022-10-11] MEDS ORDERED: CYCLOBENZAPRINE5 MG PO (04:01)
[2022-10-11] MEDS ORDERED: NAPROSYN500 MG PO (04:01)
[2022-10-11 04:56] VITALS: BP 115/78
== END 2022-10-11 04:35 | disposition home or self-care (01) ==
LOC: ER 01:23
DX: M25.562 Pain in left knee (principal); S83.8X2A Sprain of other specified parts of left knee, initial encounter; Y93.01 Activity, walking, marching and hiking; Y99.0 Civilian activity done for income or pay; N80.9 Endometriosis, unspecified
CPT/HCPCS: 99284

== ENCOUNTER → 2024-05-29 | Outpatient (REF) | payer OTHER | LOC: US 11:49 | PROVIDERS: ATTEND Internal Medicine | DX: N63.20 Unspecified lump in the left breast, unspecified quadrant (principal) | CPT/HCPCS: 19083; 77065; 88305; 88342; A4648 ==